=== PATIENT | male | born 1955 | race Caucasian/White ===

== ENCOUNTER 2020-04-11 07:32 | Outpatient (REF) | payer OTHER, SELFPAY ==
[2020-04-11 08:23] LABS: Basophils Percent Auto 0.4 % (0-2); Eosinophils Absolute Auto 0.2 X10*3/uL (0.0-0.4); Eosinophils Percent Auto 2.9 % (0-4); Hematocrit 41.2 % (42-52); Hemoglobin 13.9 g/dl (14.0-18.0); Imm Gran Abs Auto 0.05 X10*3/uL (0.00-0.03); Lymphocytes Absolute Auto 1.7 X10*3/uL (1.2-4.9); MANUAL DIFF FLAG SCAN; Mean Corpuscular HGB Conc 33.7 g/dl (31.0-36.0); Mean Corpuscular Hemoglobin 30.5 pg (27.0-33.0); Mean Corpuscular Volume 90.4 fL (80-98); Mean Platelet Volume 9.5 fL (9.4-12.4); Monocytes Absolute Auto 0.7 X10*3/uL (0.1-1.2); Monocytes Percent Auto 13.8 % (2-11); Neutrophils Absolute Auto 2.6 X10*3/uL (2.0-8.3); Neutrophils Percent Auto 49.9 % (45-73); Platelet Count 295 X10*3/uL (160-400); Red Blood Count 4.56 X10*6/uL (4.60-5.80); Red Cell Distribution Width 13.2 % (11.0-16.0); SCAN SMEAR FLAG 1; White Blood Count 5.2 X10*3/uL (4.8-10.8)
[2020-04-11 08:46] LABS: Alanine Aminotransferase 14 U/L (0-40); Albumin Level 4.1 g/dL (3.5-5.0); Alkaline Phosphatase 47 U/L (39-117); Anion Gap 12 (12-20); Aspartate Amino Transferase 18 U/L (5-37); Bilirubin Total 0.7 mg/dL (0.0-1.0); Blood Urea Nitrogen 15 mg/dL (9-16); Calcium 8.9 mg/dL (8.4-10.2); Carbon Dioxide 25 mmol/L (22-29); Chloride 107 mmol/L (96-108); Cholesterol 165 mg/dL; Estimated Glomerular Filt Rate > 60; Glucose Fasting 96 mg/dL (60-99); HDL Cholesterol 72 mg/dL; LDL Cholesterol Calculated 78 mg/dl; Potassium 4.7 mmol/l (3.3-5.1); Sodium 139 mmol/L (135-145); Total Protein 6.4 g/dL (6.5-8.0); Triglycerides 77 mg/dL
[2020-04-11 09:09] LABS: Thyroid Stimulating Hormone 1.11 mIU/mL (0.32-4.0)
[2020-04-11 09:20] LABS: SLIDE REVIEW VERIFIED
[2020-04-11 09:39] LABS: Prostate Specific Antigen Scr 1.03 ng/mL (<0.05-4.0)
[2020-04-13 09:33] LABS: Vitamin B12 647 pg/mL (200-900)
== END 2020-04-11 07:33 | disposition home or self-care (01) ==
LOC: HO.LAB 07:32
PROVIDERS: PCP Internal Medicine; Visit Provider Internal Medicine
DX: R53.83 Other fatigue (principal); Z00.00 Encounter for general adult medical examination without abnormal findings
CPT/HCPCS: 36415; 80053; 80061; 82607; 84153; 84443; 85025

== ENCOUNTER 2020-04-24 12:17 | Outpatient (REF) | payer BC, SELFPAY ==
[2020-04-24 12:30] LABS: Appearance Urine CLEAR; Color Urine YELLOW; Glucose Urine UA NEG (NEG); Leukocyte Esterase Urine NEG (NEG); Nitrite Urine NEG (NEG); Urine Blood NEG (NEG); Urine Ketones NEG (NEG); Urine Protein NEG (NEG-TRACE)
== END 2020-04-24 12:18 | disposition home or self-care (01) ==
LOC: HO.LNP 12:17
PROVIDERS: Visit Provider Internal Medicine
DX: Z00.00 Encounter for general adult medical examination without abnormal findings (principal); R53.83 Other fatigue
CPT/HCPCS: 81003

== ENCOUNTER 2020-09-22 14:23 | Outpatient (REF) | payer OTHER, SELFPAY ==
[2020-09-22 15:14] LABS: Influenza A PCR NEGATIVE (Negative); Influenza B PCR NEGATIVE (Negative); Resp Syncy Virus RNA Qual PCR NEGATIVE (Negative); SARS COV2 PCR INHOUSE POSITIVE (Negative)
== END 2020-09-22 14:24 | disposition home or self-care (01) ==
LOC: HO.LNP 14:23
PROVIDERS: Visit Provider Internal Medicine
DX: J02.9 Acute pharyngitis, unspecified (principal); Z20.822 Contact with and (suspected) exposure to COVID-19
CPT/HCPCS: 0241U

== ENCOUNTER 2021-07-15 08:57 | Outpatient (REF) | payer MEDICARE, SELFPAY ==
--- NOTE | ~2021-07-15 | XR_ITS ---
EXAMINATION: CR SINUSES CLINICAL INFORMATION: Sinus congestion and rhinitis. Patient states bilateral sinus drainage over a month. COMPARISON: CT scan of the head dated 02/02/2016. TECHNIQUE: 3 views of the sinuses were obtained. FINDINGS: Paranasal sinuses appear clear without air-fluid levels. Nasal septum is midline in position. No fractures are identified. No radiodense foreign bodies. XR/XR sinus min 3V IMPRESSION: Unremarkable examination.
[2021-07-15 09:32] LABS: MANUAL DIFF FLAG NO
[2021-07-15 10:01] LABS: Basophils Percent Auto 0.3 % (0-2); Eosinophils Absolute Auto 0.2 X10*3/uL (0.0-0.4); Eosinophils Percent Auto 2.9 % (0-4); Hematocrit 42.6 % (42.0-52.0); Hemoglobin 14.1 g/dl (14.0-18.0); Imm Gran Abs Auto 0.07 X10*3/uL (0.00-0.03); Imm Gran Pct Auto 1.1 % (0.0-0.4); Lymphocytes Absolute Auto 1.8 X10*3/uL (1.2-4.9); Lymphocytes Percent Auto 29.7 % (20-40); Mean Corpuscular HGB Conc 33.1 g/dl (31.0-36.0); Mean Corpuscular Hemoglobin 30.5 pg (27.0-33.0); Mean Platelet Volume 9.4 fL (9.4-12.4); Monocytes Percent Auto 15.5 % (2-11); Neutrophils Absolute Auto 3.1 x10*3/uL (2.0-8.3); Neutrophils Percent Auto 50.5 % (45-73); Platelet Count 370 X10*3/uL (160-400); Red Blood Count 4.63 X10*6/uL (4.60-5.80); Red Cell Distribution Width 13.4 % (11.0-16.0); White Blood Count 6.1 X10*3/uL (4.8-10.8)
[2021-07-15 10:37] LABS: Alanine Aminotransferase 15 U/L (0-40); Albumin Level 4.2 g/dL (3.5-5.0); Alkaline Phosphatase 51 U/L (39-117); Anion Gap 10 (12-20); Aspartate Amino Transferase 21 U/L (5-37); Bilirubin Total 0.9 mg/dL (0.0-1.0); Blood Urea Nitrogen 15 mg/dL (9-16); Calcium 9.7 mg/dL (8.4-10.2); Carbon Dioxide 27 mmol/L (22-29); Chloride 107 mmol/L (96-108); Cholesterol 195 mg/dL; Estimated Glomerular Filt Rate > 60; Glucose Fasting 101 mg/dL (60-99); HDL Cholesterol 83 mg/dL; LDL Cholesterol Calculated 91 mg/dl; Potassium 4.7 mmol/L (3.3-5.1); Sodium 139 mmol/L (135-145); Total Protein 6.9 g/dL (6.5-8.0); Triglycerides 108 mg/dL
[2021-07-15 10:51] LABS: Prostate Specific Antigen 1.71 ng/mL (<0.05-4.0)
== END 2021-07-15 08:58 | disposition home or self-care (01) ==
LOC: HO.XRAY 08:57
PROVIDERS: PCP Internal Medicine; Visit Provider Internal Medicine
DX: R09.81 Nasal congestion (principal); J31.0 Chronic rhinitis; I10 Essential (primary) hypertension; K21.9 Gastro-esophageal reflux disease without esophagitis; K22.70 Barrett's esophagus without dysplasia; K57.90 Diverticulosis of intestine, part unspecified, without perforation or abscess without bleeding; R35.1 Nocturia; Z12.5 Encounter for screening for malignant neoplasm of prostate
CPT/HCPCS: 36415; 70220; 80053; 80061; 84153; 85025

== ENCOUNTER 2021-07-17 11:27 | Outpatient (REF) | payer MEDICARE, SELFPAY ==
[2021-07-17 11:44] LABS: Appearance Urine CLEAR; Color Urine YELLOW; Glucose Urine UA NEG (NEG); Leukocyte Esterase Urine NEG (NEG); Nitrite Urine NEG (NEG); Urine Blood NEG (NEG); Urine Ketones NEG (NEG); Urine Protein NEG (NEG-TRACE)
== END 2021-07-17 11:28 | disposition home or self-care (01) ==
LOC: HO.LNP 11:27
PROVIDERS: Visit Provider Internal Medicine
DX: I10 Essential (primary) hypertension (principal); K21.9 Gastro-esophageal reflux disease without esophagitis; K22.70 Barrett's esophagus without dysplasia; K57.90 Diverticulosis of intestine, part unspecified, without perforation or abscess without bleeding; Z12.5 Encounter for screening for malignant neoplasm of prostate
CPT/HCPCS: 81003

== ENCOUNTER 2023-10-09 06:20 | Day surgery (SDC) | payer MEDICARE, SELFPAY ==
[2023-10-05 11:50] VITALS: BMI 21.1
--- NOTE | 2023-10-05 14:04 | P.CONAN_ITS ---
Documented by User: Vicki Zuñiga NP 10/05/23 14:05 HPI - Anesthesia Eval Consult details Narrative: 67yo M for Upper Endoscopy [facility] Past Medical History Medical History (Updated 07/07/23 @ 13:40 by Helen Ortega RN) HTN (hypertension) COPD (chronic obstructive pulmonary disease) Iron deficiency anemia GERD (gastroesophageal reflux disease) Chavira's esophagus Surgical History Surgical History (Updated 07/07/23 @ 13:40 by Helen Ortega RN) History of bilateral inguinal hernia repair H/O colonoscopy History of esophagogastroduodenoscopy (EGD) Social History Social History (Updated 10/05/23 @ 11:52 by Jessica Gilliam RN) Patient Tobacco Use Status: Former Tobacco user Quit Date: 15 years Tobacco use type: Cigarette Use of substances other than those prescribed or required for medical reasons: Yes Are you DNR?: No Advance Directives: No Advance Directives Information Provided: Yes Meds Allergies Allergy/AdvReac Type Severity Reaction Status Date / Time No Known Allergies Allergy Mild NONE Unverified 03/26/20 14:36 Home Medications Medication Instructions Recorded Confirmed Last Taken Type ibuprofen 200 mg tablet (Advil) 200 mg PO Q6H PRN Pain 07/07/23 10/05/23 Unknown History lisinopril 5 mg tablet 5 mg PO DAILY 07/07/23 10/05/23 Unknown History melatonin 1 tab PO BEDTIME 07/07/23 10/05/23 Unknown History multivitamin 1 tab PO DAILY 07/07/23 10/05/23 Unknown History omeprazole 20 mg capsule,delayed 20 mg PO DAILY 07/07/23 10/05/23 10/09/23 History release Exam Height,Weight and Vital Signs: Height 5 ft 4 in Weight 55.792 kg Assessment and Plan Assessment Anesthesia Assessment: Chart Reviewed Documented by User: Radha Benjamin MD 10/09/23 06:58 [facility] Past Medical History Medical History (Updated 07/07/23 @ 13:40 by Helen Ortega RN) HTN (hypertension) COPD (chronic obstructive pulmonary disease) Iron deficiency anemia GERD (gastroesophageal reflux disease) Chavira's esophagus Family History Family history of problems with anesthesia: No Surgical History Surgical History (Updated 07/07/23 @ 13:40 by Helen Ortega RN) History of bilateral inguinal hernia repair H/O colonoscopy History of esophagogastroduodenoscopy (EGD) History of Problems with Anesthesia: No Social History Social History (Updated 10/05/23 @ 11:52 by Jessica Gilliam RN) Patient Tobacco Use Status: Former Tobacco user Quit Date: 15 years Tobacco use type: Cigarette Use of substances other than those prescribed or required for medical reasons: Yes Are you DNR?: No Advance Directives: No Advance Directives Information Provided: Yes Meds Allergies Allergy/AdvReac Type Severity Reaction Status Date / Time No Known Allergies Allergy Mild NONE Unverified 03/26/20 14:36 Home Medications Medication Instructions Recorded Confirmed Last Taken Type ibuprofen 200 mg tablet (Advil) 200 mg PO Q6H PRN Pain 07/07/23 10/05/23 Unknown History lisinopril 5 mg tablet 5 mg PO DAILY 07/07/23 10/05/23 Unknown History melatonin 1 tab PO BEDTIME 07/07/23 10/05/23 Unknown History multivitamin 1 tab PO DAILY 07/07/23 10/05/23 Unknown History omeprazole 20 mg capsule,delayed 20 mg PO DAILY 07/07/23 10/05/23 10/09/23 History release Exam Airway Mallampati Class: II TM Dist: >3cm Neck ROM: Full Denture: Upper Heart: rrr Lungs: cta Assessment and Plan Assessment Anesthesia Assessment: Anesthesia Plan Discussed Final Anesthetic Review Family History of Problems with Anesthesia: No History of Problems with Anesthesia: No NPO: Yes ASA Class: II Final Preanesthetic Review: No Changes in Pt Med Stat, Meds/Allgs Chart Reviewed and Consent Obtained/Reviewed Patient Risk: Low Procedure Risk: Intermediate Anesthetic Plan Anesthetic Plan: MAC: Disposition: Standard PACU
[2023-10-09 06:42] VITALS: BP 149/74; PULSE 80; RESP 18; TEMP 36.7; O2SAT 99; BMI 21.3
[2023-10-09 06:54] VITALS: BMI 21.3
[2023-10-09] MEDS: Lactated Ringers 1,000 ML 100 ML IVCONT (07:15)
[2023-10-09 08:10] VITALS: BP 133/80; PULSE 87; RESP 16; TEMP 36.4; O2SAT 99
--- NOTE | 2023-10-09 08:12 | PM.OP ---
Brief Operative Note Date of Service: 10/09/23 Pre-op diagnosis: Chavira's Post-op diagnosis: other (Same, Hiatal hernia) Procedure: EGD with biopsies Surgeon: Aldo Ma MD Anesthesia: MAC Was an Industry Segment Specialist used for this Procedure?: No Estimated blood loss (mL): 2.0 Pathology: other (A. Esophagus 34 to 35cm) Condition: stable Disposition: PACU
[2023-10-09 08:25] VITALS: BP 161/89; PULSE 77; RESP 18; TEMP 36.5; O2SAT 100
--- NOTE | 2023-10-09 08:45 | OP_ITS ---
DATE OF SERVICE: 10/09/2023 SURGEON: Aldo Ma MD INDICATIONS: The patient presents for evaluation of gastroesophageal reflux and Chavira esophagus. Full consent has been obtained from him for this, including risks of bleeding and perforation. PREOPERATIVE DIAGNOSIS: POSTOPERATIVE DIAGNOSIS: PROCEDURE PERFORMED: Esophagogastroduodenoscopy with biopsies. ESTIMATED BLOOD LOSS: COMPLICATIONS: ANESTHESIA: Monitored anesthesia care. ASSISTANTS: SPECIMENS: PREOPERATIVE DIAGNOSES: Chavira esophagus and gastroesophageal reflux. POSTOPERATIVE DIAGNOSES: Chavira esophagus and gastroesophageal reflux, hiatal hernia. DESCRIPTION OF PROCEDURE: The patient was placed in the left lateral decubitus position. The Olympus video gastroscope was passed in the posterior oropharynx and upper esophagus under direct vision. The scope was passed slowly into the distal esophagus. The gastroesophageal junction appeared at 35 cm. Extending from this to 34 cm were small segments of Chavira's appearing mucosa. There was no evidence of any overlying esophagitis nor any lesions. The scope entered the stomach. There was a small hiatal hernia. The scope was advanced to the pylorus and the duodenum was cannulated to the descending portion. The duodenum including the bulb appeared normal without mass or ulceration. The scope was withdrawn back in the stomach. The gastric antrum and body appeared normal with good peristalsis. The scope was retroflexed visualizing the proximal stomach carefully, which appeared normal, without any sign of mass or ulceration. Scope was straightened and withdrawn back to the esophagus. Multiple biopsies were obtained from the Chavira's appearing mucosa between 34 and 35 cm. Proximal to 34 cm, the esophageal mucosa appeared normal. Scope was withdrawn from the patient. He tolerated the procedure well and was returned to recovery area in stable condition. IMPRESSION: 1. Chavira esophagus. 2. Hiatal hernia. 3. Gastroesophageal reflux. PLAN: The results of the biopsies will be checked. He will continue his daily omeprazole. I would recommend a repeat upper endoscopy in 3 years for further surveillance. He will otherwise see me on a p.r.n. basis. MD NITA Sharma/YASMINE / [phone]
== END 2023-10-09 08:57 | disposition home or self-care (01) ==
PROVIDERS: PCP Internal Medicine; Visit Provider Internal Medicine
PROC: 0DJ08ZZ Inspection of Upper Intestinal Tract, Via Natural or Artificial Opening Endoscopic (ICD-10-PCS; CPT 43235; principal; 2023-10-09 07:30)
DX: K21.9 Gastro-esophageal reflux disease without esophagitis (principal); K22.70 Barrett's esophagus without dysplasia; K44.9 Diaphragmatic hernia without obstruction or gangrene; I10 Essential (primary) hypertension; D50.9 Iron deficiency anemia, unspecified; Z79.1 Long term (current) use of non-steroidal anti-inflammatories (NSAID); Z79.899 Other long term (current) drug therapy
CPT/HCPCS: 43239; 88305; 88313; J1596; J2704

== ENCOUNTER 2024-11-27 10:59 | Outpatient (AMB) | payer MEDICARE, SELFPAY ==
--- NOTE | 2024-11-19 15:31 | A.OFFPC_ITS ---
Intake Visit Reasons: Routine Electric Drill Operator Required: No Accompanied by: Self / Same As Patient Allergies No Known Allergies Allergy (Mild, Unverified 03/26/20 14:36) NONE Tobacco use date assessed: 11/20/24 Fall risk assessment: No Falls in past year Last assessed Fall Risk: 11/20/24 Dental Screening Dental Screen Date: 11/20/24 Did you have a dental visit in the last 12 months?: Yes Did you have a dental problem in the last 6 months where you did not have access to dental care?: No PFSH Medical History (Updated 07/07/23 @ 13:40 by Helen Ortega, RN) HTN (hypertension) COPD (chronic obstructive pulmonary disease) Iron deficiency anemia GERD (gastroesophageal reflux disease) Chavira's esophagus Surgical History (Updated 07/07/23 @ 13:40 by Helen Ortega RN) History of bilateral inguinal hernia repair H/O colonoscopy History of esophagogastroduodenoscopy (EGD) Social History (Updated 10/05/23 @ 11:52 by Jesscia Gilliam RN) Patient Tobacco Use Status: Former Tobacco user Tobacco use type: Cigarette Questionnaire PHQ-9 Over the last 2 weeks, how often have you been bothered by any of the following problems? 1. Little interest or pleasure in doing things: not at all 2. Feeling down, depressed, or hopeless: not at all 3. Trouble falling or staying asleep, or sleeping too much: not at all 4. Feeling tired or having little energy: not at all 5. Poor appetite or overeating: not at all 6. Feeling bad about yourself - or that you are a failure or have let yourself or your family down: not at all 7. Trouble concentrating on things, such as reading the newspaper or watching television: not at all 8. Moving or speaking so slowly that other people could have noticed. Or the opposite - being so fidgety or restless that you have been moving around a lot more than usual: not at all 9. Thoughts that you would be better off or of hurting yourself in some way: not at all Total score: 0 Source: Developed by Drs. Aldo Pickens, Sandy Fernandez, Kushal Starks and colleagues, with an educational santa from [employer]. Thrive Questionnaire Date Thrive assessed: 11/20/24 I am a: Patient Within the past 12 months, did the food you bought not last and you didn't have the money to get more?: Never true Within the past 12 months, did you worry whether your food would run out before you got money to buy more?: Never true Do you have trouble paying for medicines?: No Do you have trouble getting transportation to medical appointments?: No Do you have trouble paying your heating and electricity bill?: No Do you have trouble taking care of your child, family member or friend?: No Do you have trouble with day-to-day activities such as bathing, preparing meals, shopping, managing finances, etc.?: No Are you currently unemployed and looking for a job?: No Are you interested in more education?: No THRIVE Score: 0 AUDIT C Alcohol Use Questionnaire (AUDIT-C) 1. How often do you have a drink containing alcohol?: Never 3. How often do you have six or more drinks on one occasion?: Never Total Score: 0 AJ-7 AMB Questionnaire AJ-7 Date AJ - 7 assessed: 11/20/24 Feeling nervous, anxious, or on edge: 0 = Not at all Not being able to stop or control worryin = Not at all Worrying too much about different things: 0 = Not at all Trouble relaxin = Not at all Being so restless that it is hard to sit still: 0 = Not at all Becoming easily annoyed or irritable: 0 = Not at all Feeling afraid as if something awful might happen: 0 = Not at all Total AJ-7 score (0-4 normal; 5-9 mild; 10-14 moderate; 15-21 severe): 0 Source: Developed by Drs. Aldo Pickens, Sandy Fernandez, Kushal Starks and colleagues, with an educational santa from [employer]. Physical exam (Primary Care) Tobacco/Smoking Status: Tobacco use Status Patient Tobacco Use Status Former Tobacco user 10/09/23 08:12 Tobacco use type Cigarette 10/05/23 11:52 Coding
--- NOTE | 2024-11-27 10:00 | MHC.PC.OV ---
Vital Signs 11/27/24 11:04 Height 5 ft 4 in Weight 126 lb BMI 21.6 BP 124/80 Blood Pressure Location Lt brachial Position Sitting Pulse 83 Pulse Source Pulse Oximeter Temp 97.5 F Temp Source Axillary Pulse Oximetry (%) 99 Oxygen Delivery Method Room Air Intake Visit Reasons: Routine Faith Doctor Required: No Accompanied by: Self / Same As Patient Allergies No Known Allergies Allergy (Mild, Verified 11/27/24 10:01) NONE Tobacco use date assessed: 11/27/24 Fall risk assessment: 1 Fall in past year Last assessed Fall Risk: 11/27/24 Dental Screening Dental Screen Date: 11/27/24 Did you have a dental visit in the last 12 months?: No Did you have a dental problem in the last 6 months where you did not have access to dental care?: No [facility] Medical History (Updated 11/27/24 @ 11:32 by Tenzin Davidson MD) HTN (hypertension) COPD (chronic obstructive pulmonary disease) Iron deficiency anemia GERD (gastroesophageal reflux disease) Chavira's esophagus Surgical History History of bilateral inguinal hernia repair H/O colonoscopy (~03/08/19) History of esophagogastroduodenoscopy (EGD) (~10/09/23) Family History (Updated 11/27/24 @ 11:08 by Padmini Ratliff MA) Mother No problems noted. Father No problems noted. Social History Housing: Apartment Patient Tobacco Use Status: Former Tobacco user Tobacco use type: Cigarette e-Cigarette/Vaping Use: Former Use service: No Current occupational status: retired Cognitive needs: No Hearing needs: No Vision needs: Yes (rx glasses) Questionnaire PHQ-9 Over the last 2 weeks, how often have you been bothered by any of the following problems? 1. Little interest or pleasure in doing things: not at all 2. Feeling down, depressed, or hopeless: not at all 3. Trouble falling or staying asleep, or sleeping too much: not at all 4. Feeling tired or having little energy: not at all 5. Poor appetite or overeating: not at all 6. Feeling bad about yourself - or that you are a failure or have let yourself or your family down: not at all 7. Trouble concentrating on things, such as reading the newspaper or watching television: not at all 8. Moving or speaking so slowly that other people could have noticed. Or the opposite - being so fidgety or restless that you have been moving around a lot more than usual: not at all 9. Thoughts that you would be better off or of hurting yourself in some way: not at all Total score: 0 Depression Screening Interpretation: Negative Depression Screening Done: Yes Source: Developed by Drs. Aldo Pickens, Sandy Fernandez, Kushal Starks and colleagues, with an educational santa from [employer]. Thrive Questionnaire Date Thrive assessed: 11/27/24 I am a: Patient Within the past 12 months, did the food you bought not last and you didn't have the money to get more?: Never true Within the past 12 months, did you worry whether your food would run out before you got money to buy more?: Never true Do you have trouble paying for medicines?: No Do you have trouble getting transportation to medical appointments?: No Do you have trouble paying your heating and electricity bill?: No Do you have trouble taking care of your child, family member or friend?: No Do you have trouble with day-to-day activities such as bathing, preparing meals, shopping, managing finances, etc.?: No Currently or been in a relationship where the following occur: No concerns reported THRIVE Score: 0 AUDIT C Alcohol Use Questionnaire (AUDIT-C) 1. How often do you have a drink containing alcohol?: Never 3. How often do you have six or more drinks on one occasion?: Never Total Score: 0 AJ-7 AMB Questionnaire AJ-7 Date AJ - 7 assessed: 11/27/24 Feeling nervous, anxious, or on edge: 0 = Not at all Not being able to stop or control worryin = Not at all Worrying too much about different things: 0 = Not at all Trouble relaxin = Not at all Being so restless that it is hard to sit still: 0 = Not at all Becoming easily annoyed or irritable: 0 = Not at all Feeling afraid as if something awful might happen: 0 = Not at all Total JA-7 score (0-4 normal; 5-9 mild; 10-14 moderate; 15-21 severe): 0 Source: Developed by Drs. Aldo Pickens, Sandy Fernandez, Kushal Starks and colleagues, with an educational santa from [employer]. Physical exam (Primary Care) Vital Signs: Last Vital Signs Temp 97.5 F 11/27/24 11:04 Pulse 83 11/27/24 11:04 BP 124/80 11/27/24 11:04 Pulse Ox 99 11/27/24 11:04 Oxygen Delivery Method Room Air 11/27/24 11:04 Care Plan Goal for BP management: BP is in range. BMI result Body Mass Index 21.6 Tobacco/Smoking Status: Tobacco use Status Tobacco use date assessed 11/27/24 11/27/24 10:02 Patient Tobacco Use Status Former Tobacco user 11/27/24 10:02 Tobacco use type Cigarette 11/27/24 10:02 e-Cigarette/Vaping Use Former Use 11/27/24 10:02 PHQ-9: PHQ-9 Score PHQ-9: Total score 0 11/27/24 11:08 Depression Screening Interpretation: Negative Thrive Assessment: Date of Thrive Assessment Date Thrive assessed 11/27/24 11/27/24 10:02 Currently or been in a relationship where the following occur: No concerns reported Advance Care Planning discussion: Exists, not on file Date of discussion: 11/27/24 Who was present: Patient Forms completed: Health Care Proxy Actual minutes spent: 5 Coding Level of Care Code New Pt Level 4 (86498) Complex EM visit Add On G2211 Diagnoses HTN (hypertension) I10 Additional Codes Vital Signs *Quality* - Advance Care Planning discussion: Exists, not on file ([id number]) Assessment & Plan Assessment & Plan (1) HTN (hypertension): Code(s): I10 - Essential (primary) hypertension Category: Medical Plan: BP in range. BW ordered. Will call with results Plan History of Present Illness The patient is a 68-year-old male presenting for an annual check-up and blood work. He has a past medical history significant for moderate Chronic Obstructive Pulmonary Disease (COPD), diagnosed several years prior, and reports cessation of smoking approximately 20 years ago. He does not currently use medications or inhalers for COPD management, with no recent exacerbations noted. The patient describes a persistent mild soreness in the sinus area, but this has not worsened over time. He acknowledges the need for routine blood work to be conducted, which he has been neglecting. 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 - Resides with his brother and has no children. - Ceased smoking 20 years ago. - Drives but typically avoids driving at night. Review of Systems - Respiratory: Reports history of moderate Chronic Obstructive Pulmonary Disease (COPD); Denies use of inhalers; Denies exacerbation of symptoms. - Sinus: Reports mild, constant soreness; Denies worsening of symptoms. Physical Exam General: Cooperative and healthy appearing Nutritional Appearance: Well nourished Orientation/consciousness: Patient oriented x3 Limitations: No limitations Head: Normal to inspection General: Appearance normal, both eyes and all related structures Neck: Normal visual inspection Chest: Normal palpation of entire chest wall Respiratory: Moderate COPD ormal respiratory effort Neurology: Patient oriented x3 Results Plan 1. Chronic Obstructive Pulmonary Disease Copd - Current lack of exacerbations; continue monitoring condition. - Proceed with routine blood work for health maintenance. 2. Sinus Soreness - Persistent but non-worsening soreness; observation advised. Discussion Notes During the visit, I discussed with the patient the plan to proceed with non-fasting blood work since the fasting status was not imperative given current guidelines. The importance of health maintenance and monitoring chronic conditions such as COPD were emphasized. We reviewed the patient's longstanding sinus soreness and determined no immediate intervention was necessary unless symptoms change. The patient was encouraged to remain attentive to symptom changes and to maintain a proactive approach to health management, including completing laboratory tests to ensure comprehensive monitoring. Patient Instructions - Go downstairs for non-fasting blood work today. - Monitor any changes in sinus discomfort. - Pay attention to COPD symptoms, even without current inhaler use. - Check back in about six months for a routine follow-up. Orders: Orders Basic Metabolic Panel 11/27/24 I10 - Essential (primary) hypertension UA and rflx microscopic 11/27/24 I10 - Essential (primary) hypertension Complete Blood Count no Diff 11/27/24 I10 - Essential (primary) hypertension Lipid Panel 11/27/24 I10 - Essential (primary) hypertension Liver Panel 11/27/24 I10 - Essential (primary) hypertension Thyroid Stimulating Hormone 11/27/24 I10 - Essential (primary) hypertension Prostate Specific Antigen Scr 11/27/24 I10 - Essential (primary) hypertension
[2024-11-27 11:04] VITALS: BP 124/80; PULSE 83; TEMP 36.4; O2SAT 99; BMI 21.6
--- OUTSIDE RECORDS SUMMARY | 2024-11-27 12:23 | XMS_ITS | Patient Health Record ---
Author Organization [facility] Address [address] [place] [address] Care Team Providers Care Auto Motor Mechanic Name Role Phone Alexei Goldberg MD Primary Care Provider Aldo Castaneda Unavailable [phone] Allergies No Known Allergies Reason For Referral No Information Medications Medication SIG (Take, Route, Frequency, Duration) Notes Start Date End Date Status Omeprazole 20 MG TAKE 1 CAPSULE BY MO UTH EVERY DAY for 90 Active Melatonin Active Ibuprofen 200 mg 1 Orally PRN Not-Taking Lisinopril 5 MG TAKE 1 TABLET BY CHRISTIAN TH EVERY DAY Oral Once a day Active Advil 200 MG 1 capsule with food or milk as needed Orally as needed Active Multi Vitamin/Minerals - as directed Ora lly ONCE A DAY Active Immunizations Vaccine Route Administration Date Status Comme nts Influenza Unknown 03/10/2018 Administered Problems Problem Type SNOMED Code ICD Code Onset Dates Problem Status W/U Status Risk Notes Problem 172915049 Encounter for screening for malignant neoplasm of colon (Z12.11) Active confirmed Problem Gastroesophageal reflux disease (K21.9) Active confirmed Problem 765523801 Gastroesophageal reflux disease without esophagitis (K21.9) Active confirmed Problem 82602288 Hiatal hernia (K44.9) Active confirmed Problem 469915095 Chavira''s esoph adele without dysplasia (K22.70) Active confirmed Plan Of Treatment Future Test Test Name Order Date UPPER GI ENDOSCOPY 08/20/2013 UPPER GI ENDOSCOPY 01/22/2019 COLONOSCOPY 01/22/2019 UPPER GI ENDOSCOPY 04/11/2023 Insurance Providers Payer Name Payer Address Payer Phone Subscriber Number Group Number Insured Name Patient Relationship to Insured Coverage Start Date Coverage End Date [employer] (No Referra l) [address] [place] [id number] PATRICIO FREDERICK Self - patient is the insured Medical (General) History Medical History History ICD Code EGD in 01-15-2010 and 2007 wit h Chavira's esophagus--no dysplasia--he does have a moderate-sized hiatal hernia Chavira's Esophagus GERD Hx of iron deficiency anemia -borderline---he had a negative colonoscopy in 2007-neg duodenal bx for celiac disease at that time Denies VT,DM,CVA,renal disease COPD-moderate EGD in 10/2013 with Chavira's and biopsies neg. for dysplasia--small to mod-sized hiatal hernia hypertension EGD 02/2019 with a hiatal her maría and small areas of Chavira's esophagus with biopsies negative for dysplasia Negative screening colonoscopy in 02/2019 Surgical History Surgery Date(Month/Year) hernia surgery-bilateral inguinal
--- OUTSIDE RECORDS SUMMARY | 2024-11-27 12:23 | XMS_ITS ---
Author Organization [facility] Address [address] [place] [address] Care Team Providers Care Informatica Mdm Architect Name Role Phone Alexei Goldberg MD Primary Care Provider Aldo Castaneda [phone] REASON FOR VISIT quinones's ,gerd Encounters Encounter Location Date Provider Diagnosis [facility] Outpatient [address], [place] [id number] 07/12/2023 Aldo Ma Plan Of Treatment No Information Progress Notes * PATRICIO FREDERICKDOB:1955 ( 68 yo M)Acc No.[id number]:07/12/2023 EGD/MAC Patient:?PATRICIO FREDERICK Provider:?Aldo Ma MD :1955???Age:67 Y???Sex:Male Marko e:07/12/2023 Address:[address] [place], [place] [id number] Pcp:Alexei Goldberg MD Subjective: * Chief Complaints: * ???1. Quinones's ,gerd. * Medical History:? Objective: * Vitals:? Assessment: Plan: * Treatment: * * The named appointment provid er may or may not be the originator of this progress note, and it is not deemed complete until electronically signed by the appointment provider. Sign off status: Pending * Provider:?Aldo Ma MD Date:? 024 Generated for Emiliei ng/Fanellieg/eTransmitting on:?11/27/2024 12:23 PM EDT
--- OUTSIDE RECORDS SUMMARY | 2024-11-27 12:23 | XMS_ITS ---
Author Organization [facility] Address [address] [place] [id number] Care Team Providers Care Radon Inspector Name Role Phone Alexei Goldberg MD Primary Care Provider Aldo Castaneda [phone] REASON FOR VISIT gerd, quinones's Problems Problem Type SNOMED Code ICD Code Onset Dates Problem Status W/U Status Risk Notes Problem Gastroesophageal reflux disease (K21.9) Active confirmed Encounters Encounter Location Date Provider Diagnosis 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 ; Hiatal hernia K44.9 and Gastroesophageal reflux disease K21.9 Assessments Encounter Date Diagnosis (ICD Code) Assessment Notes Treatment Notes Treatment Clinical Notes Section Notes 10/09/2023 Quinones''s esophagus without dysplasia (ICD-10 - K22.70) 10/09/2023 Hiatal hernia (ICD-10 - K44.9) 10/09/2023 Gastroesophageal reflux disease (ICD-10 - K21.9) Plan Of Treatment No Information Progress Notes * PATRICIO FREDERICKDOB:1955 ( 68 yo M)Acc No.[id number]:10/09/2023 EGD/MAC Patient:?PATRICIO FREDERICK Provider:?Aldo Ma MD :1955???Age:67 Y???Sex:Male Marko e:10/09/2023 Address:[address] [place], [place] [id number] Pcp:Alexei Goldberg MD Subjective: * Chief Complaints: * ???1. Gerd, quinones's. * Medical History:? Objective: * Vitals:? 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 Plan: * Treatment: * Procedure Codes:?39406 UPPER GI ENDOSCOPY, BIOPSY * * The named appointment provid er may or may not be the originator of this progress note, and it is not deemed complete until electronically signed by the appointment provider. Sign off status: Pending * Provider:?Aldo Ma MD Date:? 024 Generated for Etienne cobb/Fatuma/Ayush on:?11/27/2024 12:23 PM EDT
--- OUTSIDE RECORDS SUMMARY | 2024-11-27 12:23 | XMS_ITS ---
Author Organization [facility] Address [address] [place] [address] Care Team Providers Care Copy Chaser Name Role Phone Alexei Goldberg MD Primary Care Provider Aldo Castaneda [phone] REASON FOR VISIT is prior authorization required? Encounters Encounter Location Date Provider Diagnosis [facility] [address] [place] [address] 09/06/2023 Aldo Ma Plan Of Treatment No Information Progress Notes * PATRICIO FREDERICKDOB:1955 ( 67 yo M)Acc No.[id number]:09/06/2023 Patient:?PATRICIO FREDERICK :1955???Age:67 Y???Sex:Male Address:[address] [place] [id number] * true * Date:? Generated for Etienne cobb/Fatuma/eTransmitting on:?11/27/2024 12:23 PM EDT
== END 2024-11-27 11:47 | disposition home or self-care (01) ==
LOC: HO.HMCHD 10:59
PROVIDERS: PCP Internal Medicine; Visit Provider Internal Medicine
DX: I10 Essential (primary) hypertension (principal); Z00.00 Encounter for general adult medical examination without abnormal findings

== ENCOUNTER → 2024-11-27 10:59 | Outpatient (BNVA) | payer MEDICARE, SELFPAY | PROVIDERS: PCP Internal Medicine; Visit Provider Internal Medicine | DX: Z13.89 Encounter for screening for other disorder (principal) ==

== ENCOUNTER 2024-11-27 11:35 | Outpatient (REF) | payer MEDICARE, SELFPAY ==
[2024-11-27 13:29] LABS: Hematocrit 39.7 % (42.0-52.0); Hemoglobin 13.6 g/dl (14.0-18.0); Mean Corpuscular HGB Conc 34.3 g/dl (31.0-36.0); Mean Corpuscular Hemoglobin 31.3 pg (27.0-33.0); Mean Corpuscular Volume 91.3 fL (80.0-98.0); Mean Platelet Volume 9.9 fL (9.4-12.4); Platelet Count 313 X10*3/uL (160-400); Red Blood Count 4.35 X10*6/uL (4.60-5.80); Red Cell Distribution Width 14.2 % (11.0-16.0); White Blood Count 7.1 X10*3/uL (4.8-10.8)
[2024-11-27 13:59] LABS: Prostate Specific Antigen Scr 3.47 ng/mL (<0.05-4.0)
[2024-11-27 14:39] LABS: Alanine Aminotransferase 17 U/L (0-40); Albumin Level 4.3 g/dL (3.5-5.0); Alkaline Phosphatase 50 U/L (39-117); Anion Gap 11 (12-20); Aspartate Amino Transferase 27 U/L (5-37); Bilirubin Direct 0.2 mg/dL (0.0-0.5); Bilirubin Total 0.5 mg/dL (0.0-1.0); Blood Urea Nitrogen 13 mg/dL (9-16); Calcium 9.1 mg/dL (8.4-10.2); Carbon Dioxide 27 mmol/L (22-29); Chloride 105 mmol/L (96-108); Cholesterol 177 mg/dL (<200); Estimated Glomerular Filt Rate > 60; Glucose Random 128 mg/dL (60-115); HDL Cholesterol 86 mg/dL (>40); LDL Cholesterol Calculated 79 mg/dL (<100); Potassium 4.3 mmol/L (3.3-5.1); Sodium 139 mmol/L (135-145); Total Protein 6.9 g/dL (6.5-8.0); Triglycerides 63 mg/dL (<150)
[2024-11-27 14:56] LABS: Thyroid Stimulating Hormone 2.53 uIU/mL (0.32-4.0)
== END 2024-11-27 11:36 | disposition home or self-care (01) ==
LOC: HO.10HDL 11:35
PROVIDERS: Visit Provider Internal Medicine
DX: Z00.00 Encounter for general adult medical examination without abnormal findings (principal); I10 Essential (primary) hypertension; J44.9 Chronic obstructive pulmonary disease, unspecified; Z12.5 Encounter for screening for malignant neoplasm of prostate
CPT/HCPCS: 36415; 80048; 80061; 80076; 84153; 84443; 85027; 96127; 99202

== ENCOUNTER 2024-11-29 11:59 | Outpatient (REF) | payer MEDICARE, SELFPAY ==
--- OUTSIDE RECORDS SUMMARY | 2024-11-29 12:01 | XMS_ITS ---
Author Organization [facility] Address [address] [place] [address] Care Team Providers Care Construction Quality Control Manager Name Role Phone Alexei Goldberg MD Primary Care Provider Aldo Castaneda [phone] REASON FOR VISIT gerd, quinones's Problems Problem Type SNOMED Code ICD Code Onset Dates Problem Status W/U Status Risk Notes Problem Gastroesophageal reflux disease (K21.9) Active confirmed Encounters Encounter Location Date Provider Diagnosis [facility] [place] [address] [place] [phone] 10/09/2023 Aldo Ma Quinones''s esophagus without dysplasia [...] * PATRICIO FREDERICKDOB:1955 ( 68 yo M)Acc No.[id number]:10/09/2023 EGD/MAC Patient:?PATRICIO FREDERICK Provider:?Aldo Ma MD :1955???Age:67 Y???Sex:Male Marko e:10/09/2023 Address:[address] [place], [place] [phone] Pcp:Alexei Goldberg MD Subjective: * Chief Complaints: * ???1. Gerd, quinones's. * Medical History:? Objective: * Vitals:? 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 Plan: * Treatment: * Procedure Codes:?25410 UPPER GI ENDOSCOPY, BIOPSY * * The named appointment provid er may or may not be the originator of this progress note, and it is not deemed complete until electronically signed by the appointment provider. Sign off status: Pending * Provider:?Aldo Ma MD Date:? 024 Generated for Etienne cobb/Fatuma/Ayush on:?11/29/2024 12:01 PM EDT
[2024-11-29 13:39] LABS: Appearance Urine Clear; Color Urine Yellow; Glucose Urine UA Negative (Negative); Leukocyte Esterase Urine Negative (Negative); Nitrite Urine Negative (Negative); PH 6.5 (5.0-9.0); Urine Blood Negative (Negative); Urine Ketones Negative (Negative); Urine Protein Negative (Neg-Trace)
== END 2024-11-29 12:00 | disposition home or self-care (01) ==
LOC: HO.10HDLNP 11:59
PROVIDERS: Visit Provider Internal Medicine
DX: I10 Essential (primary) hypertension (principal)
CPT/HCPCS: 81003

== ENCOUNTER 2025-03-27 16:22 | Emergency (ER) | payer MEDICARE, SELFPAY ==
--- NOTE | ~2025-03-27 | CT_ITS ---
CLINICAL HISTORY: fall drinking CT cervical spine without contrast Comparison: None provided Findings: Straightening of normal cervical spine lordosis. No spondylolisthesis. No acute cervical spine fracture or subluxation. Extensive multilevel cervical spine arthropathy most profound at C5-C6 and C6-C7. No severe or high-grade spinal canal stenosis at any level. Biapical parenchymal scarring. No acute findings within visualized soft tissues. Moderate right carotid bulb calcifications. Impression: 1. No evidence of acute fracture or subluxation. 2. Extensive multilevel cervical spine arthropathy. This can be further evaluated with MRI if clinically indicated. 3. Additional chronic/nonacute findings as above. This document has been electronically signed by: Remi Escobar MD on 03/27/2025 23:35:29
--- NOTE | ~2025-03-27 | CT_ITS ---
CLINICAL HISTORY: fall and rinking alcohol CT head without contrast Comparison: None provided Findings: No intra-axial mass, midline shift, hydrocephalus, or acute hemorrhage. Mild atrophy-like change and white matter disease. There are scattered foci of increased attenuation throughout supratentorial white matter as well as the cerebellum. Some of these favored to represent developing senescent calcifications however there are few foci that appear slightly less dense for instance within the left cerebellum on series 3 images 23-25. There is no sinus or mastoid fluid. The orbits are within normal limits. No skull fracture. IMPRESSION: 1. No mass effect or midline shift. 2. No large intra or extra-axial hemorrhage. 3. Scattered foci of increased attenuation throughout supratentorial white matter and cerebellum. Some of these favored to represent developing senescent calcifications however there are few foci that appear slightly less dense for instance within the left cerebellum. In the absence of prior comparisons and within context of provided clinical history, these are overall indeterminate. Possibility of subtle subarachnoid hemorrhages can not be excluded. Consider short-term follow-up head CT in 4-6 hours. This document has been electronically signed by: Remi Escobar MD on 03/27/2025 21:40:03
[2025-03-27 17:18] VITALS: BP 145/80; PULSE 110; O2SAT 97; BMI 21.8
[2025-03-27 17:22] VITALS: BP 151/77; PULSE 91; RESP 16; TEMP 36.9; O2SAT 97
--- NOTE | 2025-03-27 17:42 | ED.GENADULT ---
HPI - General Adult General Chief complaint: ETOH/Substance Use Stated complaint: ETOH Time Seen by Provider: 03/27/25 17:22 Source: patient Mode of arrival: ambulatory Limitations: no limitations History of Present Illness ED Provider: Андрей Medel HPI narrative: 69 yold male with pmh of HTN presents to the ED for falling after drinking alcohol. Patient states after drinking 3 Coors light and some Doers she waslked from the [place] and was walking home when he lost his footing and fell unto butocks. The fall was witnessed by bastenders on the street who called 911 as per EMS. patient denies any loss of conscisouness. EMS report denies patient passing out. Related Data Home Medications ?Medication ?Instructions ?Recorded ?Confirmed ibuprofen 200 mg tablet (Advil) 200 mg PO Q6H PRN Pain 07/07/23 10/05/23 melatonin 1 tab PO BEDTIME 07/07/23 10/05/23 multivitamin 1 tab PO DAILY 07/07/23 10/05/23 omeprazole 20 mg capsule,delayed 20 mg PO DAILY 07/07/23 10/05/23 release Previous Rx's ?Medication ?Instructions ?Recorded lisinopril 5 mg tablet 5 mg PO DAILY #90 tabs 10/04/24 Allergies Allergy/AdvReac Type Severity Reaction Status Date / Time No Known Allergies Allergy Mild NONE Verified 03/27/25 17:21 Review of Systems Review of Systems: alcohol on breath Yes all other systems are reviewed and are negative [facility] Past Medical History Medical History (Updated 03/28/25 @ 00:01 by Willy Quiroga) HTN (hypertension) COPD (chronic obstructive pulmonary disease) Iron deficiency anemia GERD (gastroesophageal reflux disease) Chavira's esophagus Surgical History History of bilateral inguinal hernia repair H/O colonoscopy (~03/08/19) History of esophagogastroduodenoscopy (EGD) (~10/09/23) Family History Family History (Updated 11/27/24 @ 11:08 by Padmini Ratliff MA) Mother No problems noted. Father No problems noted. Social History Social History Housing: Apartment Alcohol intake: current Alcohol type: hard liquor Patient Tobacco Use Status: Former Tobacco user Tobacco use type: Cigarette e-Cigarette/Vaping Use: Former Use Substance Use Type: Marijuana service: No Current occupational status: retired Cognitive needs: No Hearing needs: No Vision needs: Yes (rx glasses) Physical Exam ED Vital Signs: Vital Signs - 24 hr 03/27/25 17:22 03/27/25 21:56 Temperature 98.5 F 98.0 F Pulse Rate 91 94 Respiratory Rate 16 17 Blood Pressure 151/77 H 153/76 H Pulse Oximetry 97 99 Oxygen Delivery Method Room Air Room Air BMI result Body Mass Index 21.8 Const General: cooperative, healthy appearing, comfortable, no acute distress, well developed, alert, awake and Physically active Orientation/consciousness: patient oriented x3 HENMT Head: Yes normal to inspection, Yes No palpable skull fracture present and Yes normocephalic Eyes General: appearance normal, both eyes and all related structures Neck Neck: Yes normal visual inspection, Yes full ROM, Yes no lymphadenopathy, Yes no meningeal signs, Yes trachea midline, Yes supple, No anterior neck swelling and No tender Chest Chest palpation & inspection: normal inspection of the chest and normal palpation of entire chest wall Resp Effort & Inspection: normal respiratory effort and able to speak in complete sentences Cardio Jugular venous distension: no JVD Heart sounds: S1 normal heart sound present and S2 normal heart sound present GI Inspection: Yes normal to inspection Palpation (GI): Soft to palpation, not firm, nontender, no guarding and not rigid General: Yes no CVA tenderness Back/Spine/Pelvis Back: no CVA tenderness and No back tenderness Skin General skin exam: no rashes or lesions noted, elasticity normal and turgor normal Neuro General: patient oriented x3, gait normal, tone normal, moves all extremities, Normal light touch and pain sensation, no meningeal signs, no focal motor deficits, CN's II-XI intact bilaterally and normal sensation to monofilament Extrem General: Yes normal to inspection, Yes full ROM and Yes capillary refill normal Psych Appearance: grossly normal, well kempt and not disheveled Medical Decision Making Medical Decision Making MDM Narrative: 69-year-old male presents to ED for drinking alcohol and falling onto his buttocks. Patient has no back pain on buttock tenderness. Due to patient falling although denies any head trauma we will do head CT scan cervical spine CT scan. We will observe patient. Not suspect any cardiac etiology that caused the fall. Patient did not syncopized. Patient was walking after drinking and lost his footing and fell. We will re-evaluate. 10:11pm: Patient's head CT scan results showed possible subtle subarachnoid hemorrhages. Patient is alert oriented x3. Blood pressure 153/76. [facility] trauma team paged. Waiting for them to call back. labs ordred 10:31pm: Case was discussed with Dr. Singh [facility] trauma surgeon. He recommends patient being transferred with the [facility] and will get repeat head CT scan. Patient is alert oriented x3. Patient has normal gait. Vital signs are stable. Patient will be going by ALS Differential Diagnosis Differential Diagnoses: The differential diagnosis associated with the presentation includes (Brain bleed cervical spine fracture) Admission/Observation Consideration of admission/observation: Escalation of care including admission/observation considered Consult Healthcare Provider Management of the patient was discussed with: Curriculum And Instruction Specialist (Dr. Singh. [facility] Trauma ED) Lab Data MDM Lab Attestation statement: I reviewed the patient's lab results. 03/27/25 22:18 03/27/25 22:18 Labs: Lab Results 03/27/25 Range/Units 22:18 WBC 9.0 (4.8-10.8) X10*3/uL RBC 4.51 L (4.60-5.80) X10*6/uL Hgb 14.0 (14.0-18.0) g/dl Hct 39.3 L (42.0-52.0) % MCV 87.1 (80.0-98.0) fL MCH 31.0 (27.0-33.0) pg MCHC 35.6 (31.0-36.0) g/dl RDW 13.1 (11.0-16.0) % Plt Count 324 (160-400) X10*3/uL MPV 9.0 L (9.4-12.4) fL Immature Gran % (Auto) 0.8 H (0.0-0.4) % Neut % (Auto) 65.7 (45-73) % Lymph % (Auto) 18.7 L (20-40) % Menard % (Auto) 12.6 H (2-11) % Eos % (Auto) 1.9 (0-4) % Baso % (Auto) 0.3 (0-2) % Lymph # (Auto) 1.7 (1.2-4.9) X10*3/uL Menard # (Auto) 1.1 (0.1-1.2) X10*3/uL Eos # (Auto) 0.2 (0.0-0.4) X10*3/uL Baso # (Auto) 0.0 (0.0-0.2) X10*3/uL Abs Immat Gran (auto) 0.07 H (0.00-0.03) X10*3/uL Absolute Neuts (auto) 5.9 (2.0-8.3) x10*3/uL Absolute Nucleated RBC 0.000 (0.0-0.012) X10*3/uL Nucleated RBC % (auto) 0.0 (0.0-0.2) /100WBC PT 11.0 (10.9-12.4) SEC INR 1.0 (0.9-1.1) APTT 34.0 (26.7-34.1) SEC Sodium 134 L (135-145) mmol/L Potassium 4.5 (3.3-5.1) mmol/L Chloride 103 (96-108) mmol/L Carbon Dioxide 24 (22-29) mmol/L Anion Gap 12 (12-20) BUN 9 (9-16) mg/dL Creatinine 0.62 (0.5-1.4) mg/dL Estim Creat Clear Calc 89.0 Estimated GFR > 60 Random Glucose 87 (60-115) mg/dL Calcium 9.1 (8.4-10.2) mg/dL Total Bilirubin 0.6 (0.0-1.0) mg/dL AST 36 (5-37) U/L ALT 21 (0-40) U/L Alkaline Phosphatase 57 (39-117) U/L Total Protein 7.3 (6.5-8.0) g/dL Albumin 4.6 (3.5-5.0) g/dL Ethyl Alcohol 167 mg/dL Independent Interpretation I performed an independent interpretation of an: CT Scan Radiology Impression Discussion of test interpretation with radiology: I have reviewed the radiologist's reading. Independent Historian Clinical information obtained from an independent historian. History obtained from or confirmed by: Other (patient) Critical Care Time Critical Care Time Critical Care Time: Yes Total Critical Care Time: 60 Attestation: Brain bleed on head CT scan. Case discussed with [facility] Trauma Surgeon Samantha who recommends patient be transferred to [facility]. Discharge Plan Discharge Clinical Impression: Subarachnoid hemorrhage Patient Disposition: Xfer [facility] Transfer Details: [facility] Instructions: Subarachnoid Hemorrhage (DC) Prescriptions: No Action multivitamin Tablet 1 tab PO DAILY ibuprofen [Advil] 200 mg Tablet 200 mg PO Q6H PRN (Reason: Pain) omeprazole 20 mg Capsule,Delayed Release(Dr/Ec) 20 mg PO DAILY melatonin 1 tab PO BEDTIME lisinopril 5 mg tablet 5 mg PO DAILY Qty: 90 3RF Interventions: Acute Care Transfer Worksheet (ED) Last Done: 03/27/25 23:00 Discharge Date/Time: 03/27/25 23:25 Print Language: Amharic
[2025-03-27 21:56] VITALS: BP 153/76; PULSE 94; RESP 17; TEMP 36.7; O2SAT 99
[2025-03-27 22:22] LABS: MANUAL DIFF FLAG NO
[2025-03-27 22:26] LABS: Hematocrit 39.3 % (42.0-52.0); Hemoglobin 14.0 g/dl (14.0-18.0); Imm Gran Abs Auto 0.07 X10*3/uL (0.00-0.03); Imm Gran Pct Auto 0.8 % (0.0-0.4); Lymphocytes Absolute Auto 1.7 X10*3/uL (1.2-4.9); Mean Corpuscular HGB Conc 35.6 g/dl (31.0-36.0); Mean Corpuscular Hemoglobin 31.0 pg (27.0-33.0); Mean Corpuscular Volume 87.1 fL (80.0-98.0); NRBC Abs Auto 0.000 X10*3/uL (0.0-0.012); NRBC Pct Auto 0.0 /100WBC (0.0-0.2); Platelet Count 324 X10*3/uL (160-400); Red Blood Count 4.51 X10*6/uL (4.60-5.80); White Blood Count 9.0 X10*3/uL (4.8-10.8)
[2025-03-27 22:38] LABS: Alanine Aminotransferase 21 U/L (0-40); Albumin Level 4.6 g/dL (3.5-5.0); Alkaline Phosphatase 57 U/L (39-117); Anion Gap 12 (12-20); Aspartate Amino Transferase 36 U/L (5-37); Blood Urea Nitrogen 9 mg/dL (9-16); Calcium 9.1 mg/dL (8.4-10.2); Carbon Dioxide 24 mmol/L (22-29); Chloride 103 mmol/L (96-108); Creatinine Clr Calc Pharmacy 89.0; Estimated Glomerular Filt Rate > 60; Potassium 4.5 mmol/L (3.3-5.1); Sodium 134 mmol/L (135-145); Total Protein 7.3 g/dL (6.5-8.0)
[2025-03-27 22:40] LABS: INTERNATIONAL NORM RATIO 1.0 (0.9-1.1); Prothrombin Time 11.0 SEC (10.9-12.4)
--- NOTE | 2025-03-27 22:50 | PC.NURSE ---
Pts sister Joy called and updated per pts request. Can be reached at [phone].
--- NOTE | 2025-03-27 22:57 | PC.NURSE ---
Nurse to nurse report given to DEIDRE Silveira at [facility] ED. Pt A+Ox3, c-collar in place, 18g IV placed to the R.AC. Transporting to [facility] via [facility]
[2025-03-27 23:00] VITALS: BP 153/76; PULSE 94; RESP 17; TEMP 36.7; O2SAT 99
[2025-03-27 23:47] LABS: Partial Thromboplastin Time 34.0 SEC (26.7-34.1)
== END 2025-03-27 23:25 | disposition short-term general hospital (02) ==
PROVIDERS: Physician Assistant; Emergency Provider Emergency Medicine; PCP Internal Medicine
DX: S06.6XAA Traumatic subarachnoid hemorrhage with loss of consciousness status unknown, initial encounter (principal); F10.129 Alcohol abuse with intoxication, unspecified; Y90.6 Blood alcohol level of 120-199 mg/100 ml; R51.9 Headache, unspecified; M54.2 Cervicalgia; W01.10XA Fall on same level from slipping, tripping and stumbling with subsequent striking against unspecified object, initial encounter; Y93.9 Activity, unspecified; Y92.9 Unspecified place or not applicable; Y99.8 Other external cause status; Z79.899 Other long term (current) drug therapy; Z51.81 Encounter for therapeutic drug level monitoring
CPT/HCPCS: 36415; 70450; 72125; 80053; 80307; 85025; 85610; 85730; 99285

== ENCOUNTER → 2025-03-27 17:43 | Outpatient (BNV) | payer MEDICARE, SELFPAY | PROVIDERS: Emergency Provider Emergency Medicine; PCP Internal Medicine; Visit Provider Radiology Diagnostic Radiology | DX: S09.90XA Unspecified injury of head, initial encounter (principal) | CPT/HCPCS: 70450 ==

== ENCOUNTER 2025-04-10 11:24 | Outpatient (AMB) | payer MEDICARE, SELFPAY ==
--- NOTE | 2025-04-09 18:35 | MHC.PC.OV ---
Vital Signs 04/10/25 11:31 Height 5 ft 4 in Weight 122 lb BMI 20.9 BP 122/80 Blood Pressure Location Lt brachial Position Sitting Pulse 94 Pulse Source Pulse Oximeter Temp 98.4 F Temp Source Temporal Artery Scan Pulse Oximetry (%) 98 Oxygen Delivery Method Room Air Intake Visit Reasons: S/P ED 2 day stay for all (see comments) Mill Hand Required: No Accompanied by: Self / Same As Patient Allergies No Known Allergies Allergy (Mild, Verified 03/27/25 17:21) NONE Medication List - Last Reconciled 04/10/25 by CHIP Gruber ibuprofen (Advil) 200 mg PO Q6H PRN lisinopril 5 mg PO DAILY [melatonin 1 tab PO BEDTIME] multivitamin 1 tab PO DAILY omeprazole 20 mg PO DAILY Tobacco use date assessed: 04/10/25 Fall risk assessment: No Falls in past year Last assessed Fall Risk: 04/10/25 Dental Screening Dental Screen Date: 04/10/25 Did you have a dental visit in the last 12 months?: Yes Did you have a dental problem in the last 6 months where you did not have access to dental care?: No HPI HPI Comments History of Present Illness Details The patient is a 69-year-old male with HTN, COPD, Anemia, GERD with Chavira's esophagus presenting for follow-up care after a fall resulting in a subdural hematoma. Patient was seen in the ER on 03/27/25. The fall occurred while attempting to cross the street, leading to a subdural hematoma, although the patient does not recall hitting his head. He had labs and a CT. He was transferred to [facility] and was in the ER for observation for 2 days. He underwent multiple CT scans and was monitored for blood pressure and oxygen saturation. He was discharged and told to follow up with PCP. The patient has a history of Chronic Obstructive Pulmonary Disease (COPD), diagnosed 25 years ago, and has been smoke-free for 20 years. He reports occasional lightheadedness while walking, which he attributes to sinus issues or COPD, but he is not on any medication for COPD. The patient has a history of Essential Hypertension, for which he is on Lisinopril 5mg. His BP today was 122/78. His blood pressure was elevated during his emergency room visit but has since improved. The patient reports a reduction in alcohol consumption, previously consuming two to three beers daily, increasing to three to four on weekends. He has reduced his intake to one beer in the last two weeks. [facility] Medical History (Updated 04/10/25 @ 12:56 by CHIP Gruber) Chavira's esophagus COPD (chronic obstructive pulmonary disease) GERD (gastroesophageal reflux disease) HTN (hypertension) Iron deficiency anemia Subdural hematoma, acute Surgical History H/O colonoscopy (~03/08/19) History of bilateral inguinal hernia repair History of esophagogastroduodenoscopy (EGD) (~10/09/23) Family History Mother No problems noted. Father No problems noted. Social History Housing: Apartment Alcohol intake: current Alcohol type: hard liquor Patient Tobacco Use Status: Former Tobacco user Tobacco use type: Cigarette e-Cigarette/Vaping Use: Former Use Substance Use Type: Marijuana service: No Current occupational status: retired Cognitive needs: No Hearing needs: No Vision needs: Yes (rx glasses) Questionnaire PHQ-9 Over the last 2 weeks, how often have you been bothered by any of the following problems? 1. Little interest or pleasure in doing things: not at all 2. Feeling down, depressed, or hopeless: not at all 3. Trouble falling or staying asleep, or sleeping too much: not at all 4. Feeling tired or having little energy: not at all 5. Poor appetite or overeating: not at all 6. Feeling bad about yourself - or that you are a failure or have let yourself or your family down: not at all 7. Trouble concentrating on things, such as reading the newspaper or watching television: not at all 8. Moving or speaking so slowly that other people could have noticed. Or the opposite - being so fidgety or restless that you have been moving around a lot more than usual: not at all 9. Thoughts that you would be better off or of hurting yourself in some way: not at all Total score: 0 Depression Screening Interpretation: Negative Depression Screening Done: Yes Source: Developed by Drs. Aldo L. Sandy Pickens Kurt Kroenke and colleagues, with an educational santa from [employer]. Thrive Questionnaire Date Thrive assessed: 04/10/25 I am a: Patient Within the past 12 months, did the food you bought not last and you didn't have the money to get more?: Never true Within the past 12 months, did you worry whether your food would run out before you got money to buy more?: Never true Do you have trouble paying for medicines?: No Do you have trouble getting transportation to medical appointments?: No Do you have trouble paying your heating and electricity bill?: No Do you have trouble taking care of your child, family member or friend?: No Do you have trouble with day-to-day activities such as bathing, preparing meals, shopping, managing finances, etc.?: No Are you currently unemployed and looking for a job?: No Are you interested in more education?: No THRIVE Score: 0 AUDIT C Alcohol Use Questionnaire (AUDIT-C) 1. How often do you have a drink containing alcohol?: Monthly or less 2. How many drinks containing alcohol do you have on a typical day when you are drinking?: 1 or 2 3. How often do you have six or more drinks on one occasion?: Less than monthly Total Score: 2 AJ-7 AMB Questionnaire AJ-7 Date AJ - 7 assessed: 04/10/25 Feeling nervous, anxious, or on edge: 0 = Not at all Not being able to stop or control worryin = Not at all Worrying too much about different things: 0 = Not at all Trouble relaxin = Not at all Being so restless that it is hard to sit still: 0 = Not at all Becoming easily annoyed or irritable: 0 = Not at all Feeling afraid as if something awful might happen: 0 = Not at all Total AJ-7 score (0-4 normal; 5-9 mild; 10-14 moderate; 15-21 severe): 0 Source: Developed by Drs. Aldo Pickens, Kushal Gamboa and colleagues, with an educational santa from [employer]. Review of Systems Const Details: CONSTITUTIONAL Negative HEAD/NECK Negative EAR/NOSE/MOUTH/THROAT Nasal congestion RESPIRATORY Denies dyspnea; Reports history of COPD CARDIOVASCULAR Denies chest pain GASTROINTESTINAL Negative MUSCULOSKELETAL Negative NEUROLOGICAL Denies headaches, dizziness; Reports occasional lightheadedness while walking PSYCHIATRIC Negative Physical exam (Primary Care) Vital Signs: Last Vital Signs Temp 98.4 F 04/10/25 11:31 Pulse 94 04/10/25 11:31 BP 122/80 04/10/25 11:31 Pulse Ox 98 04/10/25 11:31 Oxygen Delivery Method Room Air 04/10/25 11:31 BMI result Body Mass Index 20.9 GENERAL Well developed, Well nourished, in no apparent distress HEENT Head-Normocephalic Eyes- PERRLA, EOMI, Conjuctiva clear, lids WNL Ears- Canals clear, TMs WNL Nasal- congestion Mouth/Throat-No lesions, no erythema, no exudate Neck- Supple, No lymphadenopathy, thyroid WNL RESPIRATORY Normal I:E, Clear to auscultation CARDIOVASCULAR Regular, rate and rhythm, No murmurs or rubs NEUROLOGICAL Crainial nerves- grossly intact, DTR 2+, muscle strength 4/5 Gait normal PSYCHIATRIC Oriented to person, place and time Mood and affect WNL Appearance WNL Speech WNL Thought processes WNL Tobacco/Smoking Status: Tobacco use Status Tobacco use date assessed 04/10/25 04/09/25 18:37 Patient Tobacco Use Status Former Tobacco user 04/09/25 18:37 Tobacco use type Cigarette 04/09/25 18:37 e-Cigarette/Vaping Use Former Use 04/09/25 18:37 PHQ-9: PHQ-9 Score PHQ-9: Total score 0 04/10/25 11:31 Depression Screening Interpretation: Negative Thrive Assessment: Date of Thrive Assessment Date Thrive assessed 04/10/25 04/09/25 18:37 Results Reviewed Results Reviewed: CLINICAL HISTORY: fall and rinking alcohol CT head without contrast Comparison: None provided Findings: No intra-axial mass, midline shift, hydrocephalus, or acute hemorrhage. Mild atrophy-like change and white matter disease. There are scattered foci of increased attenuation throughout supratentorial white matter as well as the cerebellum. Some of these favored to represent developing senescent calcifications however there are few foci that appear slightly less dense for instance within the left cerebellum on series 3 images 23-25. There is no sinus or mastoid fluid. The orbits are within normal limits. No skull fracture. IMPRESSION: 1. No mass effect or midline shift. 2. No large intra or extra-axial hemorrhage. 3. Scattered foci of increased attenuation throughout supratentorial white matter and cerebellum. Some of these favored to represent developing senescent calcifications however there are few foci that appear slightly less dense for instance within the left cerebellum. In the absence of prior comparisons and within context of provided clinical history, these are overall indeterminate. Possibility of subtle subarachnoid hemorrhages can not be excluded. Consider short-term follow-up head CT in 4-6 hours. This document has been electronically signed by: Remi Escobar MD on 03/27/2025 21:40:03 CLINICAL HISTORY: fall drinking CT cervical spine without contrast Comparison: None provided Findings: Straightening of normal cervical spine lordosis. No spondylolisthesis. No acute cervical spine fracture or subluxation. Extensive multilevel cervical spine arthropathy most profound at C5-C6 and C6-C7. No severe or high-grade spinal canal stenosis at any level. Biapical parenchymal scarring. No acute findings within visualized soft tissues. Moderate right carotid bulb calcifications. Impression: 1. No evidence of acute fracture or subluxation. 2. Extensive multilevel cervical spine arthropathy. This can be further evaluated with MRI if clinically indicated. 3. Additional chronic/nonacute findings as above. This document has been electronically signed by: Remi Escobar MD on 03/27/2025 23:35:29 Coding Level of Care Code Established Pt Est Pt Level 3 (41480) Patient Type Established Diagnoses Subdural hematoma, acute S06.5XAA Primary hypertension I10 Hypertension type: primary hypertension COPD (chronic obstructive pulmonary disease) J44.9 Time Spent (min) 25 Comment Time spent on chart review, medication reconciliation, H&P, Patient education, orders Assessment & Plan Assessment & Plan (1) Subdural hematoma, acute: Code(s): S06.5XAA - Traumatic subdural hemorrhage with loss of consciousness status unknown, initial encounter Category: Medical Plan: The patient experienced a fall resulting in a subdural hematoma, confirmed by CT scans during hospitalization. The hematoma was small and expected to resolve on its own without intervention. The patient was advised to monitor for symptoms such as severe headache, nausea, or worsening dizziness, which would necessitate immediate medical attention and possibly a repeat CT scan. Patient to follow up in 2 months or sooner if symptoms persist or worsen. (2) HTN (hypertension): Comment: BP today was 122/80 Code(s): I10 - Essential (primary) hypertension Category: Medical Qualifiers: Hypertension type: primary hypertension Qualified Code(s): I10 - Essential (primary) hypertension Plan: The patient is on medication for Essential Hypertension, which was elevated during an emergency room visit but has since stabilized. He was advised to monitor his blood pressure at home, aiming for readings below 140/90 mmHg. Follow-up in two months was recommended to reassess blood pressure control. (3) COPD (chronic obstructive pulmonary disease): Code(s): J44.9 - Chronic obstructive pulmonary disease, unspecified Category: Medical Plan: The patient has a long-standing diagnosis of COPD but is not currently on medication for it. He reports occasional lightheadedness, which he attributes to sinus issues or COPD. No immediate changes to management were discussed during this visit. Patient to follow up in 2 months or sooner if symptoms persist or worsen. Plan During the visit, I discussed with the patient the nature of his subdural hematoma and the expectation that it would resolve without intervention. I advised him to monitor for any new or worsening symptoms and to seek immediate medical attention if they occur. We also reviewed his blood pressure management, emphasizing the importance of regular monitoring and maintaining readings below 140/90 mmHg. A follow-up appointment was scheduled for two months to reassess his condition. Patient Instructions: - Monitor for severe headache, nausea, or worsening dizziness and seek immediate medical attention if these occur. - Check blood pressure at home regularly, aiming for readings below 140/90 mmHg. - Reduce alcohol consumption to one beer per day, two on weekends. - Follow up in two months for reassessment.
[2025-04-10 11:31] VITALS: BP 122/80; PULSE 94; TEMP 36.9; O2SAT 98; BMI 20.9
--- OUTSIDE RECORDS SUMMARY | 2025-04-10 13:17 | XMS_ITS | Patient Health Record ---
Author Organization [facility] Address [address] [place] [address] Care Team Providers Care Loan Review Analyst Name Role Phone Yusuf (RETIRED) Alexei RODRIGUEZ Primary Care Provide r Unavailable Ma Aldo Unavailable [phone] Allergies No Known Allergies Reason For Referral [...] Problem Status W/U Status Risk Notes Problem [id number] Encounter for screening for malignant neoplasm of colon (Z12.11) Active confirmed Problem Gastroesophageal reflux disease (780784953) Gastroesophageal reflux disease (K21.9) Active confirmed Problem [id number] Gastroesophageal reflux disease without esophagitis (K21.9) Active confirmed Problem 94127536 Hiatal hernia (K44.9) Active confirmed Problem [id number] Chavira''s esophagus without dysplasia (K22.70) Active confirmed Plan Of Treatment Future Test Test Name Order Date UPPER GI ENDOSCOPY 08/20/2013 UPPER GI ENDOSCOPY 01/22/2019 COLONOSCOPY 01/22/2019 UPPER GI ENDOSCOPY 04/11/2023 Insurance Providers Payer Name Payer Address Payer Phone Subscriber Number Group Number Insured Name Patient Relationship to Insured Coverage Start Date Coverage End Date [employer] (No Referra l) [address] [place], [place] [id number] PATRICIO FREDERICK Self - patient is the insured Medical (General) History Medical History History ICD Code EGD in 01-15-2010 and 2007 wit h Chavira's esophagus--no dysplasia--he does have a moderate-sized hiatal hernia Chavira's Esophagus GERD Hx of iron deficiency anemia -borderline---he had a negative colonoscopy in 2007-neg duodenal bx for celiac disease at that time Denies [place],DM,CVA,renal disease COPD-moderate EGD in 10/2013 with Chavira's and biopsies neg. for dysplasia--small to mod-sized hiatal hernia hypertension EGD 02/2019 with a hiatal her maría and small areas of Chavira's esophagus with biopsies negative for dysplasia Negative screening colonoscopy in 02/2019 Surgical History Surgery Date(Month/Year) hernia surgery-bilateral inguinal
== END 2025-04-10 12:00 | disposition home or self-care (01) ==
LOC: HO.HMCHD 11:25
PROVIDERS: PCP Internal Medicine; Visit Provider Physician Assistant Medical
DX: S06.5XAA Traumatic subdural hemorrhage with loss of consciousness status unknown, initial encounter (principal); I10 Essential (primary) hypertension; J44.9 Chronic obstructive pulmonary disease, unspecified

== ENCOUNTER → 2025-04-10 11:24 | Outpatient (BNVA) | payer MEDICARE, SELFPAY | PROVIDERS: PCP Internal Medicine; Visit Provider Physician Assistant Medical | DX: R42 Dizziness and giddiness (principal); J44.9 Chronic obstructive pulmonary disease, unspecified; I10 Essential (primary) hypertension; S06.5XAA Traumatic subdural hemorrhage with loss of consciousness status unknown, initial encounter; X58.XXXA Exposure to other specified factors, initial encounter; Y93.9 Activity, unspecified; Y92.9 Unspecified place or not applicable; Y99.9 Unspecified external cause status; Z79.899 Other long term (current) drug therapy | CPT/HCPCS: 96127; 99212 ==

== ENCOUNTER 2025-06-25 10:51 | Outpatient (AMB) | payer MEDICARE, SELFPAY ==
[2025-06-25 11:07] VITALS: BP 130/80; PULSE 88; TEMP 36.4; O2SAT 99; BMI 22.1
--- NOTE | 2025-06-25 11:07 | MHC.PC.OV ---
Vital Signs 06/25/25 11:07 Height 5 ft 4 in Weight 129 lb BMI 22.1 BP 130/80 Blood Pressure Location Rt brachial Position Sitting Pulse 88 Pulse Source Pulse Oximeter Temp 97.6 F Temp Source Temporal Artery Scan Pulse Oximetry (%) 99 Oxygen Delivery Method Room Air Intake Visit Reasons: 2 months follow up Mail Carrier Technician Required: No Accompanied by: Self / Same As Patient Allergies No Known Allergies Allergy (Mild, Verified 06/25/25 11:07) NONE Medication List - Last Reconciled 06/25/25 by CHIP Gruber ibuprofen (Advil) 200 mg PO Q6H PRN lisinopril 5 mg PO DAILY multivitamin 1 tab PO DAILY omeprazole 20 mg PO DAILY 90 days Tobacco use date assessed: 06/25/25 Fall risk assessment: No Falls in past year Last assessed Fall Risk: 06/25/25 Dental Screening Dental Screen Date: 06/25/25 Did you have a dental visit in the last 12 months?: Yes Did you have a dental problem in the last 6 months where you did not have access to dental care?: No HPI HPI Comments History of Present Illness Details History of Present Illness The patient is a 69 year old male with HTN, COPD, Anemia, GERD with Chavira's esophagus presenting with symptoms of an upper respiratory infection. He reports getting over a cold that started last Monday and is now experiencing persistent nasal congestion, which he describes as a nuisance. He has tried Mucinex and Flonase in the past without relief. He also reports some post-nasal drip that causes him to cough and occasional chest heaviness. Past issues with headaches, dizziness, and falls have resolved. He continues to take omeprazole for acid reflux without any problems. His blood pressure is noted to be well-controlled on Lisinopril 5mg. It was 130/80 today. He received a pneumonia vaccine a couple of years ago. He would like to get a Flu vaccine today. Medical History: - Gastroesophageal reflux disease, managed with omeprazole - History of headaches and dizziness, resolved - History of falls, resolved - History of varicella (chickenpox) infection Medications: - Omeprazole for acid reflux - Unspecified medication for blood pressure Health Maintenance A number of preventive care items were addressed. The patient received his annual influenza vaccine during the visit. After discussion, the RSV vaccine was deferred due to a lack of exposure to children. It was recommended that he receive the two-dose shingles vaccine series, which he can obtain from a pharmacy. It was confirmed that his pneumonia vaccine is up to date. Refills for his chronic medications, including for blood pressure and omeprazole, will be ensured. A follow-up visit is planned in six months. Social History - Exposures: Denies regular exposure to children. Patient was informed and verbally consented to the use of an ambient scribe for clinic note documentation during this visit. [facility] Medical History (Updated 06/25/25 @ 11:58 by CHIP Gruber) Chavira's esophagus COPD (chronic obstructive pulmonary disease) GERD (gastroesophageal reflux disease) GERD without esophagitis HTN (hypertension) Iron deficiency anemia Nasal congestion Subdural hematoma, acute Surgical History H/O colonoscopy (~03/08/19) History of bilateral inguinal hernia repair History of esophagogastroduodenoscopy (EGD) (~10/09/23) Family History (Updated 06/25/25 @ 11:12 by Padmini Ratliff MA) Mother No problems noted. Father No problems noted. Social History Housing: Apartment Alcohol intake: current Alcohol type: hard liquor Patient Tobacco Use Status: Former Tobacco user Tobacco use type: Cigarette e-Cigarette/Vaping Use: Former Use Substance Use Type: Marijuana service: No Current occupational status: retired Cognitive needs: No Hearing needs: No Vision needs: Yes (rx glasses) Questionnaire PHQ-9 Over the last 2 weeks, how often have you been bothered by any of the following problems? 1. Little interest or pleasure in doing things: not at all 2. Feeling down, depressed, or hopeless: not at all 3. Trouble falling or staying asleep, or sleeping too much: not at all 4. Feeling tired or having little energy: not at all 5. Poor appetite or overeating: not at all 6. Feeling bad about yourself - or that you are a failure or have let yourself or your family down: not at all 7. Trouble concentrating on things, such as reading the newspaper or watching television: not at all 8. Moving or speaking so slowly that other people could have noticed. Or the opposite - being so fidgety or restless that you have been moving around a lot more than usual: not at all 9. Thoughts that you would be better off or of hurting yourself in some way: not at all Total score: 0 Depression Screening Interpretation: Negative Depression Screening Done: Yes Source: Developed by Drs. Aldo Pickens, Sandy Fernandez, Kushal Starks and colleagues, with an educational santa from [place]. Thrive Questionnaire Date Thrive assessed: 06/25/25 I am a: Patient Within the past 12 months, did the food you bought not last and you didn't have the money to get more?: Never true Within the past 12 months, did you worry whether your food would run out before you got money to buy more?: Never true Do you have trouble paying for medicines?: No Do you have trouble getting transportation to medical appointments?: No Do you have trouble paying your heating and electricity bill?: No Do you have trouble taking care of your child, family member or friend?: No Do you have trouble with day-to-day activities such as bathing, preparing meals, shopping, managing finances, etc.?: No Are you currently unemployed and looking for a job?: No Are you interested in more education?: No THRIVE Score: 0 AUDIT C Alcohol Use Questionnaire (AUDIT-C) 1. How often do you have a drink containing alcohol?: Monthly or less 2. How many drinks containing alcohol do you have on a typical day when you are drinking?: 1 or 2 3. How often do you have six or more drinks on one occasion?: Less than monthly Total Score: 2 AJ-7 AMB Questionnaire AJ-7 Date AJ - 7 assessed: 06/25/25 Feeling nervous, anxious, or on edge: 0 = Not at all Not being able to stop or control worryin = Not at all Worrying too much about different things: 0 = Not at all Trouble relaxin = Not at all Being so restless that it is hard to sit still: 0 = Not at all Becoming easily annoyed or irritable: 0 = Not at all Feeling afraid as if something awful might happen: 0 = Not at all Total AJ-7 score (0-4 normal; 5-9 mild; 10-14 moderate; 15-21 severe): 0 Source: Developed by Drs. Aldo Pickens, Sandy Fernandez, Kushal Starks and colleagues, with an educational santa from [place]. Review of Systems Narrative Review of Systems - HEENT: Reports persistent nasal congestion and post-nasal drip. Denies headaches, dizziness, and ear pain. - Respiratory: Reports a cough caused by post-nasal drip and occasional chest heaviness related to his cold. Denies other breathing issues. - Neurological: Denies headaches, dizziness, or falls. - GI: Denies problems related to acid reflux. Physical exam (Primary Care) Vital Signs: Last Vital Signs Temp 97.6 F 06/25/25 11:07 Pulse 88 06/25/25 11:07 BP 130/80 06/25/25 11:07 Pulse Ox 99 06/25/25 11:07 Oxygen Delivery Method Room Air 06/25/25 11:07 BMI result Body Mass Index 22.1 GENERAL Well developed, Well nourished, in no apparent distress HEENT Head-Normocephalic Eyes- PERRLA, EOMI, Conjuctiva clear, lids WNL Ears- Canals clear, TMs WNL Nasal- congestion Mouth/Throat-No lesions, no erythema, no exudate Sinus- nontender Neck- Supple, No lymphadenopathy, thyroid WNL RESPIRATORY Normal I:E, Clear to auscultation CARDIOVASCULAR Regular, rate and rhythm, No murmurs or rubs NEUROLOGICAL Gait normal PSYCHIATRIC Oriented to person, place and time Mood and affect WNL Appearance WNL Speech WNL Thought processes WNL Tobacco/Smoking Status: Tobacco use Status Tobacco use date assessed 06/25/25 06/25/25 11:13 Patient Tobacco Use Status Former Tobacco user 06/25/25 11:13 Tobacco use type Cigarette 06/25/25 11:13 e-Cigarette/Vaping Use Former Use 06/25/25 11:13 PHQ-9: PHQ-9 Score PHQ-9: Total score 0 06/25/25 11:48 Depression Screening Interpretation: Negative Thrive Assessment: Date of Thrive Assessment Date Thrive assessed 06/25/25 06/25/25 11:13 Narrative Physical Exam - Vitals: Blood pressure is good. - HEENT: Ears show some fluid in one, but not severe. No tenderness to palpation over sinuses. Oropharynx unremarkable on inspection. - Lungs: Clear to auscultation bilaterally. Office Procedures Flu Questionnaire Does the patient have a severe egg allergy?: No Does the patient have severe life threatening allergies?: No Does the patient have a fever or illness today?: No Has the patient ever had Guillain-Houston Syndrome?: No Has the patient ever had any past reaction to a flu shot?: No Immunizations Fluzone High-Dose (PF) 180 mcg/0.5 mL intramuscular syringe Performing Provider: CHIP Gruber Performing Location: [facility] Administered by: Noreen Camacho CMA on 06/25/25 11:52 Dose Route Admin Location Dispensed Lot Number Expiration Date ND User Experience Developer 0.5 mL IM Right Deltoid 0.5 mL [id number] 01/06/26 35206-146-33 [employer] Total Dispensed Waste 0.5 mL 0 % VIS Given Date VIS Provided VIS Publication Date 06/25/25 Single Vaccine 24 Eligibility Eligibility Date Funding Source Not [facility] Eligible 06/25/25 Private Coding Level of Care Code Established Pt Est Pt Level 4 (81498) Established Pt Add On Problem Visit Only Patient Type Established Diagnoses Primary hypertension I10 Hypertension type: primary hypertension Nasal congestion R09.81 GERD without esophagitis K21.9 Time Spent (min) 30 Comment Time spent on chart review, H&P, Patient education and orders. Assessment & Plan Assessment & Plan (1) HTN (hypertension): Comment: BP today was 130/80 Code(s): I10 - Essential (primary) hypertension Category: Medical Qualifiers: Hypertension type: primary hypertension Qualified Code(s): I10 - Essential (primary) hypertension Plan: Controlled. Patient will continue current medications. Will monitor. Patient will follow up in 6 months (2) Nasal congestion: Code(s): R09.81 - Nasal congestion Category: Medical Plan: Patient advised to continue Flonase. Patient to follow up as needed if symptoms persist or worsen. (3) GERD without esophagitis: Code(s): K21.9 - Gastro-esophageal reflux disease without esophagitis Category: Medical Plan: Doing well on Omeprazole. Patient will continue current medications. Will monitor. Patient will follow up in 6 months Plan Plan Patient was informed and verbally consented to the use of an ambient scribe for clinic note documentation during this visit. 1. Acute Upper Respiratory Infection The patient is recovering from a viral upper respiratory infection, with residual nasal congestion and post-nasal drip. Physical exam shows no evidence of a secondary bacterial sinus infection. The plan is to manage symptoms with Flonase, two sprays in each nostril twice daily. Instructions were provided on the proper administration technique to maximize efficacy and avoid throat irritation. It was also recommended to maintain adequate fluid intake. Discussion Notes I discussed with the patient that his current symptoms of persistent congestion and post-nasal drip are likely the residual effects of his recent viral cold, and the examination did not suggest it has developed into a sinus infection. I recommended he try Flonase nasal spray again, and I provided detailed instructions on proper technique to improve its effectiveness and minimize it dripping down his throat. We also reviewed his vaccination status. I recommended he proceed with the annual flu shot, which was administered in the office, and the two-part shingles vaccine series, which he can get at a pharmacy. I explained that the RSV vaccine was likely unnecessary for him at this time given his low exposure risk. I confirmed his chronic medications for blood pressure and acid reflux would have refills available, and we scheduled a follow-up visit for six months. Patient Instructions - For your nasal congestion, use Flonase nasal spray. - Use two sprays in each nostril in the morning and at night. - When you use the spray, look down, aim the spray up into your nose, and do not sniff it hard; this will keep the medicine in your nose where it works best. - It may take 2-3 days for you to feel the full effects. - Make sure to drink plenty of fluids to help clear up mucus. - You received your annual flu shot today. - Please go to a local pharmacy, like [facility], to get the shingles vaccine, which is a two-shot series. - We will make sure you have refills for your routine blood pressure and omeprazole medications. - Please schedule a follow-up appointment for six months from now before you leave today. Orders: Orders Influenza [id number] High Dose Immunization Today Z23 - Encounter for immunization Medications: Refilled lisinopril 5 mg PO DAILY 90 tabs 3RF omeprazole 20 mg PO DAILY 90 caps 2RF 90 days
--- OUTSIDE RECORDS SUMMARY | 2025-06-25 14:06 | XMS_ITS | Patient Health Record ---
Author Organization [facility] Address [address] [place] [id number] Care Team Providers Care Procurement Professional Logistics Name Role Phone Yusuf (RETIRED) Alexei RODRIGUEZ Primary Care Provide r Unavailable Aldo Ma Unavailable [phone] Allergies No Known Allergies Reason For Referral No Information Medications Medication SIG (Take, Route, Frequency, Duration) Notes Start Date End Date Status Omeprazole 20 MG Capsule Delayed Release TAKE 1 CAPSULE BY MOUTH EVERY DAY; Duration: 90 Active Melatonin Active Ibuprofen 200 mg 1 Orally PRN Not-Taking/PRN Lisinopril 5 MG Tablet TAKE 1 TABLET BY MOUTH EVERY DAY Oral Once a day Active Advil 200 MG Capsule 1 capsule with food or milk as needed Orally as needed Active Multi Vitamin/Minerals - Tablet as directed Orally ONCE A DAY Active Immunizations Vaccine Route Administration Date Status Comme nts Influenza Unknown 03/10/2018 Administered Social History Social History Additional Details Category Social Info Options Details Miscellaneous: Marital status: 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 Section Notes: Nonsmoker x 8 yrs; 1 beer QD on weekdays and 3-4 beers on the weekends Nonsmoker > 13 yrs; 1 beer Q D on weekdays and 3-4 beers on the weekends Nonsmoker > 13 yrs; non smok er since 2004 1 beer QD on weekdays and 3-4 beers on the weekends Problems Problem Type SNOMED Code ICD Code Onset Dates Problem Status W/U Status Risk Notes Problem Screening for malignant neoplasm of colon (062319693) Encounter for screening for malignant neoplasm of colon (Z12.11) Active confirmed Problem Gastroesophageal reflux disease (152331675) Gastroesophageal reflux disease (K21.9) Active confirmed Problem Gastroesophageal reflux disease without esophagitis (294812230) Gastroesophageal reflux disease without esophagitis (K21.9) Active confirmed Problem Hiatal hernia (72953684) Hiatal hernia (K44.9) Active confirmed Problem Chavira's esophagus (839895992) Chavira''s esophagus without dysplasia (K22.70) Active confirmed Plan Of Treatment Future Test Test Name Order Date UPPER GI ENDOSCOPY 08/20/2013 UPPER GI ENDOSCOPY 01/22/2019 COLONOSCOPY 01/22/2019 UPPER GI ENDOSCOPY 04/11/2023 Insurance Providers Payer Name Payer Address Payer Phone Subscriber Number Group Number Insured Name Patient Relationship to Insured Coverage Start Date Coverage End Date [employer] (No Referra l) [address] [place], [place] [id number] PATRICIO FREDERICK Self - patient is the insured Medical (General) History Medical History History ICD Code EGD in 01-15-2010 and 2007 wit h Chavira's esophagus--no dysplasia--he does have a moderate-sized hiatal hernia Chavira's Esophagus GERD Hx of iron deficiency anemia -borderline---he had a negative colonoscopy in 2007-neg duodenal bx for celiac disease at that time Denies OR,DM,CVA,renal disease COPD-moderate EGD in 10/2013 with Chavira's and biopsies neg. for dysplasia--small to mod-sized hiatal hernia hypertension EGD 02/2019 with a hiatal her maría and small areas of Chavira's esophagus with biopsies negative for dysplasia Negative screening colonoscopy in 02/2019 Surgical History Surgery Date(Month/Year) hernia surgery-bilateral inguinal
== END 2025-06-25 11:37 | disposition home or self-care (01) ==
LOC: HO.HMCHD 10:52
PROVIDERS: PCP Physician Assistant Medical; Visit Provider Physician Assistant Medical
DX: I10 Essential (primary) hypertension (principal); R09.81 Nasal congestion; K21.9 Gastro-esophageal reflux disease without esophagitis; Z23 Encounter for immunization

== ENCOUNTER → 2025-06-25 10:51 | Outpatient (BNVA) | payer MEDICARE, SELFPAY | PROVIDERS: PCP Physician Assistant Medical; Visit Provider Physician Assistant Medical | DX: I10 Essential (primary) hypertension (principal); R09.81 Nasal congestion; K21.9 Gastro-esophageal reflux disease without esophagitis; Z23 Encounter for immunization | CPT/HCPCS: 90471; 90662; 96127; 99212 ==